=== PATIENT | male | born 1985 | race African-American/Black ===

== ENCOUNTER 2020-12-27 02:23 | Emergency (ER) | payer MEDICAID ==
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
[2020-12-27] MEDS ORDERED: HYDROmorphone 1 MG/ML Syringe IM ONE (04:16)
--- NOTE | 2020-12-27 09:41 | CR ---
Tibia Fibula Lt CLINICAL HISTORY: Injury FINDINGS: Patient has an oblique slightly displaced fracture of the distal tibia. There is also fracture of the proximal fibula. Impression: Tib-fib fractures
== END 2020-12-27 05:14 ==
LOC: JP.ED 02:23
DX: S82.312A Torus fracture of lower end of left tibia, initial encounter for closed fracture (principal); S82.822A Torus fracture of lower end of left fibula, initial encounter for closed fracture; R56.9 Unspecified convulsions; Z88.8 Allergy status to other drugs, medicaments and biological substances; Z79.899 Other long term (current) drug therapy; Z72.0 Tobacco use; Z20.822 Contact with and (suspected) exposure to COVID-19; Y04.0XXA Assault by unarmed brawl or fight, initial encounter
CPT/HCPCS: 29505; 73590; 87635; 96372; 99284; J1170; U0002

== ENCOUNTER 2021-01-02 12:03 | Emergency (ER) | payer MEDICAID ==
--- NOTE | 2021-01-02 12:36 | EDM.PDOC ---
ED HPI GENERAL MEDICAL PROBLEM - General Chief Complaint: Wound Recheck Stated Complaint: DRESSING CHANGED POST SURGERY Time Seen by Provider: 01/02/21 12:31 Source of Information: Reports: Patient History Limitations: Reports: No Limitations - History of Present Illness INITIAL COMMENTS - FREE TEXT/NARRATIVE: 35-year-old male had surgery on his left lower extremity a week ago, got the dressings in the walking boot wet. He called his surgeon and they recommended he come in and get some dry bandages. No fevers or chills, no recurrent injury. Onset: Today Location: Reports: Lower Extremity, Left Associated Symptoms: Reports: Other (Having some postoperative pain) Left Ankle Pain Score (Numeric/FACES): 5 - Related Data Allergies Allergy/AdvReac Type Severity Reaction Status Date / Time carbamazepine [From Tegretol] Allergy Seizure Verified 01/02/21 12:21 Home Meds: Home Meds Phenytoin Sodium Extended [Dilantin] 150 mg PO BID 12/27/20 [History] Past Medical History Musculoskeletal History: Reports: Fracture Neurological History: Reports: Brain Injury, Seizure Psychiatric History: Reports: Antisocial Behaviors, Depression, Other (See Below) - Infectious Disease History Infectious Disease History: Reports: Chicken Pox - Past Surgical History Musculoskeletal Surgical History: Reports: Other (See Below) Other Musculoskeletal Surgeries/Procedures:: left leg fixation Social & Family History - Tobacco Use Tobacco Use Status *Q: Light Tobacco User Years of Tobacco use: 8 Packs/Tins Daily: 0.5 - Caffeine Use Caffeine Use: Reports: Coffee, Energy Drinks, Soda, Tea - Recreational Drug Use Recreational Drug Use: Yes Recreational Drug Type: Reports: Marijuana/Hashish Recreational Drug Use Frequency: Socially ED ROS GENERAL - Review of Systems Review Of Systems: See Below Constitutional: Denies: Fever, Chills Respiratory: Reports: No Symptoms GI/Abdominal: Reports: No Symptoms Musculoskeletal: Reports: Other (Leg pain, typical postoperative pain) Skin: Reports: Bruising (Fairly significant bruising of the lower leg postsurgical) Neurological: Denies: Paresthesia ED EXAM, SKIN/RASH Exam: See Below Exam Limited By: No Limitations General Appearance: Alert, No Apparent Distress Respiratory/Chest: No Respiratory Distress Extremities: Other (Exam is otherwise limited the left lower extremity. He has diffuse bruising from the knee through the foot from the recent injury and surgery. Four Aquacel dressings are in place and intact, do not need to be replaced) Neurological: Alert, Oriented Psychiatric: Normal Affect, Normal Mood Course - Vital Signs Last Recorded V/S: Last Vital Signs Temp 97.7 F 01/02/21 12:19 Pulse 76 01/02/21 12:19 Resp 16 01/02/21 12:19 BP 150/84 H 01/02/21 12:19 Pulse Ox 98 01/02/21 12:19 - Re-Assessments/Exams Free Text/Narrative Re-Assessment/Exam: 01/02/21 12:38 All of the wet dressings were removed, the leg was dried and fresh dressing was placed over the original Aquacel. Chucks were placed into his walking boot after as much moisture was dabbed with paper towels as possible. He can let this dry when home. Recheck as scheduled. Departure - Departure Time of Disposition: 13:03 Disposition: Home, Self-Care 01 Clinical Impression: Dressing change or removal, surgical wound - Discharge Information Instructions: Wound Care, Adult Referrals: PCP,None [Primary Care Provider] - Forms: ED Department Discharge Care Plan Goals: Try to keep the dressing and boot dry, keep any follow-up appointments as scheduled. If nonweightbearing, the boot can be removed for further drying after you get home. Sepsis Event Note (ED) - Evaluation Sepsis Screening Result: No Definite Risk
== END 2021-01-02 13:03 | disposition home or self-care (01) ==
LOC: JP.ED 12:03
DX: Z48.01 Encounter for change or removal of surgical wound dressing (principal); Z72.0 Tobacco use; Z88.8 Allergy status to other drugs, medicaments and biological substances
CPT/HCPCS: 99282

== ENCOUNTER 2021-01-18 21:58 | Emergency (ER) | payer MEDICAID ==
[2021-01-18] MEDS ORDERED: Cephalexin 250 MG Cap PO ONE (23:01)
--- NOTE | 2021-01-18 23:02 | EDM.PDOC ---
ED HPI GENERAL MEDICAL PROBLEM - General Chief Complaint: Skin Complaint Stated Complaint: LEFT LEG POST SURGERY COMPLICATIONS Time Seen by Provider: 01/18/21 22:10 Source of Information: Reports: Patient History Limitations: Reports: No Limitations - History of Present Illness INITIAL COMMENTS - FREE TEXT/NARRATIVE: Deacon is a 35-year-old male presenting to the ED with concerns of postoperative wound infection. Patient had a josefina placed into his tibia and plating of the fibula after having comminuted fracture of both last month. He was cared for by [facility] in [place]. He had the cristin removed and noted that there has been some discharge from several of the wounds in the lower leg. The skin is red, distended, hot, tender and there is a small amount of purulent discharge from the lower edge of the wound. Left Lower Leg Pain Score (Numeric/FACES): 7 - Related Data Allergies Allergy/AdvReac Type Severity Reaction Status Date / Time carbamazepine [From Tegretol] Allergy Seizure Verified 01/18/21 22:12 Home Meds: Home Meds Phenytoin Sodium Extended [Dilantin] 150 mg PO BID 12/27/20 [History] Past Medical History Musculoskeletal History: Reports: Fracture Neurological History: Reports: Brain Injury, Seizure Psychiatric History: Reports: Antisocial Behaviors, Depression, Other (See Below) - Infectious Disease History Infectious Disease History: Reports: Chicken Pox - Past Surgical History Musculoskeletal Surgical History: Reports: Other (See Below) Other Musculoskeletal Surgeries/Procedures:: left leg fixation Social & Family History - Tobacco Use Tobacco Use Status *Q: Current Every Day Tobacco User Years of Tobacco use: 5 Packs/Tins Daily: 0.5 - Caffeine Use Caffeine Use: Reports: Energy Drinks, Soda - Recreational Drug Use Recreational Drug Use: Yes Recreational Drug Type: Reports: Marijuana/Hashish ED ROS GENERAL - Review of Systems Review Of Systems: See Below Constitutional: Reports: No Symptoms Musculoskeletal: Reports: Leg Pain Skin: Reports: Erythema (Increased redness, swelling, increased temperature and pain around the postoperative wounds on the lower left leg.) ED EXAM, SKIN/RASH Exam: See Below Exam Limited By: No Limitations General Appearance: Alert, No Apparent Distress Neurological: Alert, Oriented, Normal Cognition, No Motor/Sensory Deficits Skin: Erythema (The lower left leg has significant erythema, increased temperatu re, tenderness, and swelling around the multiple sites of incisions. There is purulent discharge from the lowest incision just over the anterior foot/ankle. There is been evidence of recent staple removal from these wounds.) Location, Skin: Lower Extremity, Left Characteristics: Erythematous Associated features: Warmth, Tenderness, Swelling, Induration, Weeping (Purulent discharge from the lower segment of the lowest incision wound.) Course - Vital Signs Last Recorded V/S: Last Vital Signs Temp 35.5 C L 01/18/21 22:10 Pulse 70 01/18/21 22:10 Resp 16 01/18/21 22:10 BP 135/75 01/18/21 22:10 Pulse Ox 97 01/18/21 22:10 - Orders/Labs/Meds Labs: Laboratory Tests 01/18/21 01/18/21 Range/Units 22:10 22:10 WBC 9.3 (4.5-11.0) K/uL RBC 4.21 L (4.30-5.90) M/uL Hgb 13.0 (12.0-15.0) g/dL Hct 38.6 L (40.0-54.0) % MCV 92 (80-98) fL MCH 31 (27-31) pg MCHC 34 (32-36) % Plt Count 328 (150-400) K/uL Neut % (Auto) 45.7 (36-66) % Lymph % (Auto) 35.5 (24-44) % [place] % (Auto) 9.6 H (2-6) % Eos % (Auto) 5.5 H (2-4) % Baso % (Auto) 3.7 H (0-1) % C-Reactive Protein 1.98 H (0.0-0.3) mg/dL - Re-Assessments/Exams Free Text/Narrative Re-Assessment/Exam: 01/18/21 23:04 I reviewed the patient's labs. The CBC is normal with a leukocyte count of 9.3 with a normal differential, hemoglobin 13.0, hematocrit of 38.6 and a platelet count of 328,000. The C-reactive protein is elevated 1.98. This appears to be a postoperative cellulitis that is now developing. Because of the look of the wound we will start him on cephalexin 500 mg 3 times daily for 7 days. Patient should follow-up with his orthopedic surgeon if not improving. Departure - Departure Time of Disposition: 22:59 Disposition: Home, Self-Care 01 Clinical Impression: Cellulitis of left lower leg - Discharge Information Instructions: Cellulitis, Adult, [id number] Referrals: PCP,None [Primary Care Provider] - Care Plan Goals: It appears that you are developing skin infection secondary to your wounds on the left lower leg. We are going to put you on an antibiotic called cephalexin. You need to take this antibiotic 3 times a day for the next 7 days. The first dose will be given in the ER with the remainder of the medication in the [employer] med machine totaling it 21 tablets. If the wound continues to worsen we may have to switch over to IV antibiotics but I would give it 2 to 3 days before making that decision. Please notify your orthopedic surgeon as they may want to see you back sooner than your scheduled follow-up. Sepsis Event Note (ED) - Evaluation Sepsis Screening Result: No Definite Risk - Focused Exam Vital Signs: Vital Signs Temp Pulse Resp BP Pulse Ox 01/18/21 22:10 35.5 C L 70 16 135/75 97 - Problem List & Annotations (1) Cellulitis of left lower leg SNOMED Code(s): 191983258 Code(s): L03.116 - CELLULITIS OF LEFT LOWER LIMB Status: Acute Priority: Low Current Visit: Yes - Problem List Review Problem List Initiated/Reviewed/Updated: Yes
== END 2021-01-18 23:13 | disposition home or self-care (01) ==
LOC: JP.ED 21:58
DX: L03.116 Cellulitis of left lower limb (principal); Z72.0 Tobacco use; Z88.8 Allergy status to other drugs, medicaments and biological substances
CPT/HCPCS: 36415; 85025; 86140; 99284; A9270

== ENCOUNTER 2022-08-19 12:31 | Emergency (ER) | payer MEDICAID ==
[2022-08-19] MEDS ORDERED: Sodium Chloride 0.9% 10 ML Syringe FLUSH PRN (14:00)
[2022-08-19] MEDS ORDERED: HYDROmorphone 0.5 MG/0.5 ML Syringe IVPUSH ONE (14:03)
[2022-08-19] MEDS ORDERED: Ondansetron 4 MG/2 ML SDV IVPUSH ONE (14:03)
== END 2022-08-19 14:50 | disposition home or self-care (01) ==
LOC: JP.ED 12:31
DX: S42.031A Displaced fracture of lateral end of right clavicle, initial encounter for closed fracture (principal); R56.9 Unspecified convulsions; F17.210 Nicotine dependence, cigarettes, uncomplicated; Z79.899 Other long term (current) drug therapy; Z88.8 Allergy status to other drugs, medicaments and biological substances; W01.0XXA Fall on same level from slipping, tripping and stumbling without subsequent striking against object, initial encounter
CPT/HCPCS: 73030; 96374; 96375; 99284; J1170; J2405; J3490

== ENCOUNTER 2022-08-22 11:04 | Emergency (ER) | payer MEDICAID | END 2022-08-22 12:30 | disposition left against medical advice (07) | LOC: JP.ED 11:04 | DX: Z53.21 Procedure and treatment not carried out due to patient leaving prior to being seen by health care provider (principal) ==

== ENCOUNTER 2022-08-28 10:23 | Day surgery (SDC) | payer MEDICAID ==
[~2022-08-28 10:23] MED LIST: Lactated Ringers 1,000 ML IV SCH; Nozin Nasal Sanitizer NASBOTH ONE
[2022-08-28] MEDS ORDERED: ceFAZolin 1 GM in Premix Bag 1 BAG IV ONE (10:30)
[2022-08-28] MEDS ORDERED: Dexamethasone 4 MG/ML SDV ONE (10:33)
[2022-08-28] MEDS ORDERED: Glycopyrrolate 0.2 MG/ML 5 ML MDV ONE (10:33)
[2022-08-28] MEDS ORDERED: Rocuronium 50 MG/5 ML Vial ONE (10:33)
[2022-08-28] MEDS ORDERED: Propofol 200 MG/20 ML SDV ONE (10:33)
[2022-08-28] MEDS ORDERED: Neostigmine Methylsulfate 1 MG/ML 5 ML Syringe ONE (10:33)
[2022-08-28] MEDS ORDERED: Succinylcholine 200 MG/10 ML MDV ONE (10:33)
[2022-08-28] MEDS ORDERED: Ondansetron 4 MG/2 ML SDV ONE (10:33)
[2022-08-28] MEDS ORDERED: fentaNYL 250 MCG/5 ML SDV ONE ×2 (10:35→13:16)
[2022-08-28 10:44] LABS: HEMATOCRIT 42.8 % (38.4-49.7); HEMOGLOBIN 14.7 g/dL (12.9-16.9); MEAN CORPUSCULAR HEMOGLOBIN 31.5 pg (31.6-35.5); MEAN CORPUSCULAR HGB CONC 34.3 g/dL (31.6-35.5); MEAN CORPUSCULAR VOLUME 91.8 fL (81.4-99.0); RED BLOOD CELL COUNT 4.66 M/uL (4.14-5.76); WHITE BLOOD CELL COUNT,WBC 7.6 K/uL (3.2-11.0)
[2022-08-28 11:08] LABS: ANION GAP 15.3 mmol/L (5.0-14.0); CALCIUM 8.6 mg/dL (8.5-10.1); EST CRCL DRUG DOSING (CG) 116.45 mL/min; POTASSIUM,K 3.3 mmol/L (3.6-5.2)
[2022-08-28] MEDS: Bupivacaine 0.5% 50 ML MDV ONE ×3 (12:02→14:31)
[2022-08-28] MEDS ORDERED: Acetaminophen/HYDROcodone 325-5 MG Tab PO PRN (15:36)
== END 2022-08-28 16:45 | disposition home or self-care (01) ==
LOC: JP.SDS 10:23
PROVIDERS: ATTEND Specialist
DX: S42.031A Displaced fracture of lateral end of right clavicle, initial encounter for closed fracture (principal); F17.200 Nicotine dependence, unspecified, uncomplicated; Z88.8 Allergy status to other drugs, medicaments and biological substances; Z86.69 Personal history of other diseases of the nervous system and sense organs; Z87.820 Personal history of traumatic brain injury; W19.XXXA Unspecified fall, initial encounter
CPT/HCPCS: 23515; 36415; 73000; 80048; 85027; A9270; C1713; J0330; J0690; J1100; J2405; J2704; J2710; J3010; J3490; J7120

== ENCOUNTER 2022-10-01 23:59 | Emergency (ER) | payer MEDICAID | END 2022-10-02 02:22 | disposition home or self-care (01) | LOC: JP.ED 23:59 | DX: S66.911A Strain of unspecified muscle, fascia and tendon at wrist and hand level, right hand, initial encounter (principal); Z88.8 Allergy status to other drugs, medicaments and biological substances; Z72.0 Tobacco use; W18.39XA Other fall on same level, initial encounter | CPT/HCPCS: 73110-26-RT; 73110-RT; 99282; 99283 ==

== ENCOUNTER 2022-11-23 12:58 | Emergency (ER) | payer MEDICAID ==
[2022-11-23] MEDS ORDERED: Baclofen 10 MG Tab PO ONE (13:31)
[2022-11-23] MEDS ORDERED: Ketorolac 30 MG/ML SDV IM ONE (13:32)
[2022-11-23 14:06] LABS: ALANINE AMINOTRANSFERASE,ALT 24 U/L (12-78); ALBUMIN 3.8 g/dL (3.4-5.0); ALKALINE PHOSPHATASE 133 U/L (46-116); ANION GAP 12.7 mmol/L (5.0-14.0); ASPARTATE AMNIOTRANSFERASE,AST 28 U/L (15-37); BILIRUBIN TOTAL 0.7 mg/dL (0.2-1.0); BLOOD UREA NITROGEN,BUN 11 mg/dL (7-18); CALCIUM 8.8 mg/dL (8.5-10.1); CARBON DIOXIDE,CO2 27 mmol/L (21-32); CHLORIDE,CL 101 mmol/L (100-108); CREATININE 1.1 mg/dL (0.8-1.3); ESTIMATED GFR 88 mL/min (>60); GLUCOSE RANDOM 111 mg/dL (74-106); POTASSIUM,K 3.7 mmol/L (3.6-5.2); PROTEIN TOTAL,TP 7.5 g/dL (6.4-8.2); SODIUM,NA 137 mmol/L (140-148)
== END 2022-11-23 14:30 | disposition left against medical advice (07) ==
LOC: JP.ED 12:58
DX: G40.909 Epilepsy, unspecified, not intractable, without status epilepticus (principal); F17.210 Nicotine dependence, cigarettes, uncomplicated; Z88.8 Allergy status to other drugs, medicaments and biological substances; Z79.899 Other long term (current) drug therapy
CPT/HCPCS: 36415; 80053; 83735; 96372; 99283; A9270; J1885

== ENCOUNTER 2022-12-18 22:10 | Emergency (ER) | payer MEDICAID ==
[2022-12-18] MEDS ORDERED: Methocarbamol 500 MG Tab PO ONE (22:38)
[2022-12-18] MEDS ORDERED: Gabapentin 100 MG Cap PO ONE (22:42)
== END 2022-12-18 23:45 | disposition home or self-care (01) ==
LOC: JP.ED 22:10
DX: S22.049D Unspecified fracture of fourth thoracic vertebra, subsequent encounter for fracture with routine healing (principal); S22.059D Unspecified fracture of T5-T6 vertebra, subsequent encounter for fracture with routine healing; S22.06 Fracture of T7-T8 vertebra; S22.079D Unspecified fracture of T9-T10 vertebra, subsequent encounter for fracture with routine healing; G40.909 Epilepsy, unspecified, not intractable, without status epilepticus
CPT/HCPCS: 72070; 99283; A9270

== ENCOUNTER 2023-01-02 21:20 | Emergency (ER) | payer MEDICAID ==
[2023-01-02 22:11] LABS: BASOPHILS ABSOLUTE AUTO 0.04 K/uL (0.00-0.10); BASOPHILS PERCENT AUTO 0.3 % (0.1-1.3); EOSINOPHILS ABSOLUTE AUTO 0.14 K/uL (0.00-0.40); HEMATOCRIT 43.3 % (38.4-49.7); HEMOGLOBIN 14.7 g/dL (12.9-16.9); IMMATURE GRAN ABSOLUTE AUTO 0.05 K/uL (0.00-0.23); IMMATURE GRAN PERCENT AUTO 0.4 % (0.0-0.7); LYMPHOCYTES PERCENT AUTO 15.6 % (11.4-47.7); MEAN CORPUSCULAR HEMOGLOBIN 31.2 pg (31.6-35.5); MEAN CORPUSCULAR HGB CONC 33.9 g/dL (31.6-35.5); MEAN CORPUSCULAR VOLUME 91.9 fL (81.4-99.0); MONOCYTES ABSOLUTE AUTO 0.74 K/uL (0.20-0.90); MONOCYTES PERCENT AUTO 5.5 % (3.3-12.6); NEUTROPHILS ABSOLUTE AUTO 10.36 K/uL (1.0-7.6); NEUTROPHILS PERCENT AUTO 77.2 % (40.0-78.1); PLATELET COUNT,PLT 276 K/uL (130-375); RED BLOOD CELL COUNT 4.71 M/uL (4.14-5.76); WHITE BLOOD CELL COUNT,WBC 13.4 K/uL (3.2-11.0)
[2023-01-02 22:27] LABS: CALCIUM 8.7 mg/dL (8.5-10.1); EST CRCL DRUG DOSING (CG) 109.93 mL/min; POTASSIUM,K 3.9 mmol/L (3.6-5.2)
[2023-01-02 22:28] LABS: ANION GAP 10.9 mmol/L (5.0-14.0)
[2023-01-03 00:06] LABS: BILIRUBIN,URINE NEGATIVE (NEGATIVE); COLOR,URINE YELLOW (YELLOW); GLUCOSE,URINE NEGATIVE (NEGATIVE); KETONES,URINE NEGATIVE (NEGATIVE); LEUKOCYTE ESTERASE,URINE SMALL (NEGATIVE); NITRITE,URINE NEGATIVE (NEGATIVE); OCCULT BLOOD,URINE NEGATIVE (NEGATIVE); PROTEIN,URINE NEGATIVE (NEGATIVE)
[2023-01-03 00:16] LABS: APPEARANCE,URINE SLIGHTLY CLOUDY (CLEAR); BACTERIA,URINE FEW; EPITHELIAL CELLS,URINE NOT SEEN; MUCUS,URINE NOT SEEN; RBC,URINE 0-5 (0-5)
[2023-01-03 00:17] LABS: AMORPHOUS SEDIMENT,URINE NOT SEEN
== END 2023-01-03 02:01 | disposition home or self-care (01) ==
LOC: JP.ED 21:20
DX: S32.049A Unspecified fracture of fourth lumbar vertebra, initial encounter for closed fracture (principal); G40.909 Epilepsy, unspecified, not intractable, without status epilepticus; F17.210 Nicotine dependence, cigarettes, uncomplicated; Z88.8 Allergy status to other drugs, medicaments and biological substances
CPT/HCPCS: 36415; 74176; 80048; 81001; 85025; 99284

== ENCOUNTER 2023-02-28 16:15 | Emergency (ER) | payer MEDICAID | END 2023-02-28 17:32 | disposition home or self-care (01) | LOC: JP.ED 16:15 | DX: M94.0 Chondrocostal junction syndrome [Tietze] (principal); F17.210 Nicotine dependence, cigarettes, uncomplicated | CPT/HCPCS: 99284 ==

== ENCOUNTER 2023-04-14 23:12 | Emergency (ER) | payer MEDICAID ==
[2023-04-15] MEDS: Ketorolac 30 MG/ML SDV IM ONE (00:20)
[2023-04-15] MEDS: Codeine/guaiFENesin 10-100 MG/5 ML Syrup 5 ML Cup PO ONE (01:38)
== END 2023-04-15 01:38 | disposition home or self-care (01) ==
LOC: JP.ED 23:12
DX: M62.838 Other muscle spasm (principal); J40 Bronchitis, not specified as acute or chronic; F17.210 Nicotine dependence, cigarettes, uncomplicated; Z88.8 Allergy status to other drugs, medicaments and biological substances
CPT/HCPCS: 71046; 96372; 99283; 99284; A9270-GY; J1885

== ENCOUNTER 2024-08-24 13:48 | Emergency (ER) | payer MEDICAID ==
[2024-08-24] MEDS: Ketorolac 30 MG/ML SDV IM ONE (14:27)
== END 2024-08-24 14:58 | disposition home or self-care (01) ==
LOC: JP.ED 13:48
DX: S62.304A Unspecified fracture of fourth metacarpal bone, right hand, initial encounter for closed fracture (principal); Z88.8 Allergy status to other drugs, medicaments and biological substances; W22.8XXA Striking against or struck by other objects, initial encounter; Y93.89 Activity, other specified
CPT/HCPCS: 29125; 73130; 96372; 99283; J1885